=== PATIENT | male | born 1985 | race Caucasian/White ===

== ENCOUNTER 2020-03-01 15:41 | Emergency (ER) | payer SELFPAY ==
[~2020-03-01] VITALS: Ht 172.7 cm; Wt 118.6 kg
--- NOTE | 2020-03-01 15:43 | NUR ---
Patient to ED 3 from registration desk. See triage admission. Pt history seeing provider Flaca Moore [facility]. 1 yr ago diagnosed HTN and started "Losartan" and quit after 2 months for a cough. Both parents diabetic and HTN. Patient acknowledges cutting back on his high intake of caffeine and denies Energy drinks. Pt is a social drinker of beer a 6 pack on a weekend. Smoker: 1/2 pk a day. Denies illicit drugs. Dr Beltre to room.
[2020-03-01] MEDS ORDERED: ASPIRIN 81 MG CHEW (CHILDREN'S ASA) PO STA (15:55)
[2020-03-01] MEDS ORDERED: meTOprolol 5 MG/5 ML (LOPRESSOR) VIAL IV STA (15:55)
--- NOTE | 2020-03-01 16:06 | ED Chest Pain ---
General Chief Complaint: Chest Pain Stated Complaint: CHEST PAIN Source: patient History of Present Illness Date Seen by Provider: Mar 01, 2020 Time Seen by Provider: 15:44 Initial Comments 34-year-old male presenting with complaints of left-sided chest pain radiating to his neck and ears since 2 PM on February 28. He has had similar pains in the past with high blood pressure. He is not currently taking any blood pressure medicine because he felt like his pressures got better with cutting out caffeine. He had some nausea yesterday and took antacids to help that. He had no vomiting. He had sharp chest pains yesterday but today it is more just pressure. Since the pain was not going away he contacted his provider at [facility] and they advised him to come to the emergency department. 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 NTG SL BAILING MACHINE OPERATOR: No Associated Symptoms: No abdominal pain, No back pain, No diaphoresis, No dizziness, No edema, No fatigue, No fever/chills, No headache; nausea/vomiting (nausea but no vomiting); No rash; shortness of breath (mild); No swelling/lump in chest, No syncope, No weakness Allergies and Home Medications Allergies Coded Allergies: Penicillins (Verified Allergy, Unknown, Rash, 03/01/20) Home Medications Carvedilol 6.25 Mg Tablet, 6.25 MG PO BID Prescribed by: ROSY GONZALEZ on 03/01/20 0370 Patient Home Medication List Home Medication List Reviewed: Yes Review of Systems Review of Systems Constitutional: No chills, No dizziness, No fever EENTM: No Symptoms Reported Respiratory: Denies Shortness of Air Cardiovascular: See HPI Gastrointestinal: See HPI Genitourinary: No Symptoms Reported Musculoskeletal: no symptoms reported Skin: no symptoms reported Psychiatric/Neurological: Denies Headache, Denies Numbness, Denies Paresthesia Endocrine: No Symptoms Reported Past Muccqsi-Bzsome-Hexzzn Hx Patient Social History Alcohol Use: Occasionally Uses Alcohol Beverage of Choice: Beer Smoking Status: Current Everyday Smoker Type Used: Cigarettes Past Medical History Surgeries: No Respiratory: No Cardiac: Yes Hypertension Neurological: No Physical Exam Vital Signs Vital Signs - First Documented 03/01/20 03/01/20 15:43 17:48 Temp 37.2 Pulse 102 Resp 24 B/P (MAP) 146/111 (123) Pulse Ox 98 O2 Delivery Room Air Capillary Refill : Height, Weight, BMI Height: '" Weight: lbs. oz. 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 Norm as Tested Skin: Normal Color, Warm/Dry Progress/Results/Core Measures Results/Orders Lab Results Laboratory Tests Test 03/01/20 15:51 Range/Units White Blood Count 8.9 4.3-11.0 10^3/uL Red Blood Count 5.21 4.35-5.85 10^6/uL Hemoglobin 15.1 13.3-17.7 G/DL Hematocrit 46 40-54 % Mean Corpuscular Volume 88 80-99 FL Mean Corpuscular Hemoglobin 29 25-34 PG Mean Corpuscular Hemoglobin Concent 33 32-36 G/DL Red Cell Distribution Width 13.2 10.0-14.5 % Platelet Count 266 130-400 10^3/uL Mean Platelet Volume 9.1 7.4-10.4 FL Immature Granulocyte % (Auto) 0 % Neutrophils (%) (Auto) 69 42-75 % Lymphocytes (%) (Auto) 23 12-44 % Monocytes (%) (Auto) 7 0-12 % Eosinophils (%) (Auto) 1 0-10 % Basophils (%) (Auto) 0 0-10 % Neutrophils # (Auto) 6.2 1.8-7.8 X 10^3 Lymphocytes # (Auto) 2.1 1.0-4.0 X 10^3 Monocytes # (Auto) 0.6 0.0-1.0 X 10^3 Eosinophils # (Auto) 0.1 0.0-0.3 10^3/uL Basophils # (Auto) 0.0 0.0-0.1 10^3/uL Immature Granulocyte # (Auto) 0.0 0.0-0.1 10^3/uL Prothrombin Time 12.8 12.2-14.7 SEC INR Comment 0.9 0.8-1.4 Activated Partial Thromboplast Time 27 24-35 SEC Sodium Level 137 135-145 MMOL/L Potassium Level 3.7 3.6-5.0 MMOL/L Chloride Level 101 98-107 MMOL/L Carbon Dioxide Level 23 21-32 MMOL/L Anion Gap 13 5-14 MMOL/L Blood Urea Nitrogen 12 7-18 MG/DL Creatinine 1.02 0.60-1.30 MG/DL Estimat Glomerular Filtration Rate > 60 BUN/Creatinine Ratio 12 Glucose Level 119 H 70-105 MG/DL Calcium Level 9.7 8.5-10.1 MG/DL Corrected Calcium 8.5-10.1 MG/DL Magnesium Level 2.1 1.6-2.4 MG/DL Total Bilirubin 0.3 0.1-1.0 MG/DL Aspartate Amino Transf (AST/SGOT) 31 5-34 U/L Alanine Aminotransferase (ALT/SGPT) 71 H 0-55 U/L Alkaline Phosphatase 66 40-136 U/L Troponin I < 0.30 <0.30 NG/ML Pro-B-Type Natriuretic Peptide 7.8 <75.0 PG/ML Total Protein 7.8 6.4-8.2 GM/DL Albumin 5.1 H 3.2-4.5 GM/DL Lipase 26 8-78 U/L My Orders Orders - ROSY GONZALEZ MD Cbc With Automated Diff (03/01/20 15:46) Magnesium (03/01/20 15:46) Chest 1 View Ap/Pa Only (03/01/20 15:46) Ekg Tracing (03/01/20 15:46) Comprehensive Metabolic Panel (03/01/20 15:46) Protime With Inr (03/01/20 15:46) Partial Thromboplastin Time (03/01/20 15:46) O2 (1/21/21 15:46) Monitor-Rhythm Ecg Trace Only (03/01/20 15:46) Ed Iv/Invasive Line Start (03/01/20 15:46) Lipase (03/01/20 15:46) Troponin I Fs (03/01/20 15:46) Probnp Fs (03/01/20 15:46) Aspirin Chewable Tablet (Baby Aspirin Ch (03/01/20 15:55) Metoprolol Tartrate Injection (Lopressor (03/01/20 15:55) Metoprolol Succinate (Xl) Tab (Toprol Xl (03/01/20 17:30) Vital Signs/I&O 03/01/20 03/01/20 03/01/20 15:43 15:43 17:48 Temp 37.2 36.2 Pulse 102 85 Resp 24 26 B/P (MAP) 146/111 (123) 130/84 (123) Pulse Ox 98 O2 Delivery Room Air Room Air Room Air Progress Progress Note #1: Progress Note Obtain basic labs as well as electrocardiogram and chest x-ray. With his elevated blood pressure and having similar symptoms a year ago for his elevated blood pressure we will try giving a dose of metoprolol to see if that makes a di fference. Try 324 mg of aspirin as well. If he continues to have pain then he may need additional pain medication. Since his pain and symptoms have been going on since 2 PM on Thursday, 28 February if he was having an acute ID or cardiac event his troponin and labs should show abnormality today. Progress Note #2: Time: 17:17 Progress Note Labs all negative for acute ID or coronary syndrome. No acute significant abnormality. Troponin <0.3 after more than 24 hours of symptoms. CXR and ECG without acute significant abnormality. Pt felt better as bp came down with treatment. Will discharge on meds for blood pressure. Encourage follow up and they may need to continue his medicines as well as possibly do a stress test. Counseled on follow-up and return precautions. Give Metoprolol 25 mg XL here prior to discharge and Carvedilol 6.25 mg bid to pharmacy. Initial ECG Impression Date: Mar 01, 2020 Initial ECG Impression Time: 15:46 Initial ECG Rate: 97 Initial ECG Rhythm: Normal Sinus Initial ECG Comparisson: No Previous ECG Available Comment Normal sinus rhythm with a heart rate of 97 bpm. ND interval [address] elevation. QT interval 338 ms with a QTc interval 430 ms. No prior tracing available for comparison. Diagnostic Imaging Diagonstic Imaging: Xray Plain Films/CT/US/NM/MRI: chest Comments [facility]. [place], [place] NAME: LOU REY [facility] REC#: [id number] PT STATUS: REG ER : 1985 PHYSICIAN: ROSY GONZALEZ MD ADMIT DATE: 03/01/20/ER FS Signed Date of Exam:03/01/20 CHEST 1 VIEW AP/PA ONLY INDICATION: Chest pain. FINDINGS: The lungs are clear and symmetrically expanded. The heart size and pulmonary vascularity appears normal. There is no infiltrate, effusion, pneumothorax or failure pattern. The bony structures are unremarkable. There was no free air beneath the diaphragms. IMPRESSION: Unremarkable frontal chest. Dictated by: Dictated on workstation # [id number] Dict: 03/01/20 1611 Trans: 03/01/201655 [facility] [id number] Interpreted by: ROD MANCERA Electronically signed by: ROD MANCERA 03/01/201655 Departure Impression Primary Impression: Essential hypertension Additional Impression: Chest pain in adult Disposition: 01 HOME, SELF-CARE Condition: Improved Departure-Patient Inst. Decision time for Depature: 17:30 Referrals: [facility] Patient Instructions: Lowering Your Risk of Heart Disease, Chest Pain, Adult ED, Controlling Your Blood Pressure Through Lifestyle, DASH Diet, High Blood Pressure (DC), Medicines for High Blood Pressure Add. Discharge Instructions: Stay well hydrated and avoid caffeine and carbonated drinks. Take blood pressure medicine. Follow up with clinic and they may want you to see Cardiology for a stress test if having continued problems/concerns. All discharge instructions reviewed with patient and/or family. Voiced understanding. Scripts Carvedilol (Carvedilol) 6.25 Mg Tablet 6.25 MG PO BID for hypertension for 30 Days, #60 TAB 0 Refills Prov: ROSY GONZALEZ MD 03/01/20 ROSY GONZALEZ MD Mar 01, 2020 16:06
[2020-03-01 16:10] LABS: HEMATOCRIT 46 % (40-54); HEMOGLOBIN 15.1 G/DL (13.3-17.7); MEAN CORPUSCULAR HEMOGLOBIN 29 PG (25-34); MEAN CORPUSCULAR HGB CONC 33 G/DL (32-36); MEAN CORPUSCULAR VOLUME 88 FL (80-99); MEAN PLATELET VOLUME 9.1 FL (7.4-10.4); PLATELET COUNT 266 10^3/uL (130-400); WHITE BLOOD COUNT 8.9 10^3/uL (4.3-11.0)
[2020-03-01 16:11] LABS: BASOPHILS % (AUTO) 0 % (0-10); EOSINOPHILS # (AUTO) 0.1 10^3/uL (0.0-0.3); EOSINOPHILS % (AUTO) 1 % (0-10); LYMPHOCYTES # (AUTO) 2.1 X 10^3 (1.0-4.0); LYMPHOCYTES % (AUTO) 23 % (12-44); MONOCYTES # (AUTO) 0.6 X 10^3 (0.0-1.0); MONOCYTES % (AUTO) 7 % (0-12); NEUTROPHILS # (AUTO) 6.2 X 10^3 (1.8-7.8); NEUTROPHILS % (AUTO) 69 % (42-75)
--- NOTE | 2020-03-01 16:14 | Diagnostic Imaging Report ---
INDICATION: Chest pain. FINDINGS: The lungs are clear and symmetrically expanded. The heart size and pulmonary vascularity appears normal. There is no infiltrate, effusion, pneumothorax or failure pattern. The bony structures are unremarkable. There was no free air beneath the diaphragms. IMPRESSION: Unremarkable frontal chest. Dictated by: Dictated on workstation # [id number]
[2020-03-01 16:17] LABS: INR 0.9 (0.8-1.4); PROTHROMBIN TIME PATIENT 12.8 SEC (12.2-14.7)
[2020-03-01 16:44] LABS: ALANINE AMINOTRANSFERASE 71 U/L (0-55); ALBUMIN 5.1 GM/DL (3.2-4.5); ALKALINE PHOSPHATASE 66 U/L (40-136); BILIRUBIN,TOTAL 0.3 MG/DL (0.1-1.0); BUN/CREATININE RATIO 12; CALCIUM 9.7 MG/DL (8.5-10.1); CARBON DIOXIDE 23 MMOL/L (21-32); CHLORIDE 101 MMOL/L (98-107); CREATININE SERUM 1.02 MG/DL (0.60-1.30); GFR ESTIMATED > 60; GLUCOSE 119 MG/DL (70-105); MAGNESIUM 2.1 MG/DL (1.6-2.4); POTASSIUM 3.7 MMOL/L (3.6-5.0); SODIUM 137 MMOL/L (135-145); TOTAL PROTEIN 7.8 GM/DL (6.4-8.2)
[2020-03-01 16:45] LABS: LIPASE 26 U/L (8-78)
[2020-03-01] MEDS ORDERED: CARV6.252 PO (17:30)
[2020-03-01 17:48] VITALS: BP 130/84
[2020-03-01] MEDS ORDERED: HYDR-3817 (18:24)
== END 2020-03-01 17:48 | disposition home or self-care (01) ==
LOC: ER FS 15:44
DX: I10 Essential (primary) hypertension (principal); R07.9 Chest pain, unspecified; E66.9 Obesity, unspecified; F17.210 Nicotine dependence, cigarettes, uncomplicated; Z88.0 Allergy status to penicillin
CPT/HCPCS: 36415; 71045; 80053; 83690; 83735; 83880; 84484; 85025; 85610; 85730; 93005; 93041